=== PATIENT | male | born 1955 | race African-American/Black ===

== ENCOUNTER 2017-07-04 15:25 | Emergency (ER) | payer OTHER ==
--- NOTE | 2017-07-04 15:41 | PDOC ---
Rapid Medical Evaluation Time Seen by Provider: 07/04/17 15:39 Medical Evaluation: Allergies Allergy/AdvReac Type Severity Reaction Status Date / Time No Known Allergies Allergy Verified 07/04/17 15:40 07/04/17 15:40 I have performed a brief in-person evaluation of this patient. The patient presents with a chief complaint of: htn Pertinent physical exam findings:alert, ambulatory, asymptomatic I have ordered the following: ekg, losartan 100-25. pt's normal med, has not taken in 2 days The patient will proceed to the ED for further evaluation. 07/04/17 15:42
[2017-07-04] MEDS ORDERED: LOSARTAN 50MG/HCTZ 12.5MG 1 TAB (FP) PO ONE (15:42)
[2017-07-04 15:47] VITALS: BMI 31.6
[2017-07-04] MEDS ORDERED: HYDROCHLOROTHIAZIDE 25 MG TABLET (FP) ONE (15:57)
[2017-07-04] MEDS ORDERED: LOSARTAN POTASSIUM 25 MG TABLET ONE (15:57)
[2017-07-04] MEDS ORDERED: cloNIDine HCL 0.1 MG TABLET PO ONE (16:36)
--- NOTE | 2017-07-04 16:36 | PDOC ---
History of Present Illness - General History Source: Patient Exam Limitations: No Limitations - History of Present Illness Initial Comments: 07/04/17 16:53 61 year old male, with significant past medical history of HTN (noncompliant with Losartan), and elevated triglycerides (not on any medications), who presents to the emergency room with high blood pressure. 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 He states that he was asymptomatic and denies lightheadedness, dizziness, chest pain. The patient notes that he took a sex pill yesterday (not sure of the name) that he bought from a gas station. Last time he took this sex pill, his blood pressure became elevated and was sent to an ED from an Urgent Care for IV fluids and medications. He states that his blood pressure is usually around 140/90 at his baseline. Denies lightheadedness, dizziness, headache. Denies chest pain, SOB, palpitations. Denies fever, chills, nausea, vomiting. Allergies: NKA Surgical hx: tonsillectomy (14 years old) PCP: Jo Dixon <Laquita Dukes - Last Filed: 07/04/17 16:53> <Susannah Spivey - Last Filed: 07/04/17 22:09> - General Chief Complaint: Blood Pressure Problem Stated Complaint: BLOOD PRESSURE PROBLEM Time Seen by Provider: 07/04/17 15:39 Past History <Laquita Dukes - Last Filed: 07/04/17 16:53> - Past Medical History COPD: No HTN: Yes - Suicide/Smoking/Psychosocial Hx Smoking History: Never smoked Have you smoked in the past 12 months: No Information on smoking cessation initiated: No Hx Alcohol Use: No Drug/Substance Use Hx: No Substance Use Type: None <Susannah Spivey - Last Filed: 07/04/17 22:09> - Past Medical History Allergies/Adverse Reactions: Allergies Allergy/AdvReac Type Severity Reaction Status Date / Time No Known Allergies Allergy Verified 07/04/17 15:40 Home Medications: Ambulatory Orders Losartan/Hydrochlorothiazide [Losartan-Hctz 100-12.5 mg Tab] 1 each PO DAILY Review of Systems - Review of Systems Able to Perform ROS?: Yes Comments:: 07/04/17 16:54 CONSTITUTIONAL: Absent: fever, no chills, no fatigue EYES: Absent: visual changes ENT: Absent: ear pain, no sore throat CARDIOVASCULAR: Absent: chest pain, no palpitations RESPIRATORY: Absent: cough, no SOB GI: Absent: abdominal pain, no nausea, no vomiting, no constipation, no diarrhea GENITOURINARY: Absent: dysuria, no frequency, no hematuria MUSCULOSKELETAL: Absent: back pain, no arthralgia, no myalgia SKIN: Absent: rash NEURO: Absent: headache <Laquita Dukes - Last Filed: 07/04/17 16:53> *Physical Exam - Vital Signs Last Vital Signs Temp Pulse Resp BP Pulse Ox 97.5 F L 59 L 18 210/130 100 07/04/17 15:41 07/04/17 15:41 07/04/17 15:41 07/04/17 15:41 07/04/17 15:41 - Physical Exam Comments: 07/04/17 16:54 GENERAL: Well-appearing, well-nourished. No apparent distress. HEENT: Normocephalic, atraumatic. PERRL, EOM intact. CARDIOVASCULAR: Normal S1, S2. Regular rate and rhythm. PULMONARY: Clear to auscultation bilaterally. ABDOMEN: Soft, non-distended, non-tender. EXTREMITIES: Normal ROM in all four extremities. No gross deformities. SKIN: Warm, dry. No rash NEUROLOGICAL: No focal neurological deficits. 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 <Laquita Dukes - Last Filed: 07/04/17 16:53> <Susannah Spivey - Last Filed: 07/04/17 22:09> Diagnosis at time of Disposition: Elevated blood pressure reading - Discharge Dispostion Disposition: HOME Condition at time of disposition: Stable - Referrals Referrals: STAFF,NOT ON [Primary Care Provider] - - Patient Instructions Printed Discharge Instructions: DI for High Blood Pressure Additional Instructions: please take your blood pressure medications as prescribed by your doctor
[2017-07-04] MEDS ORDERED: cloNIDine HCL 0.1 MG TABLET ONE (16:59)
[2017-07-04 19:14] VITALS: BP 160/99; PULSE 60; TEMP 97.7
== END 2017-07-04 18:25 | disposition home or self-care (01) ==
LOC: JER 15:25
DX: I10 Essential (primary) hypertension (principal); E78.5 Hyperlipidemia, unspecified; Z91.14 Patient's other noncompliance with medication regimen
CPT/HCPCS: 99281-25